=== PATIENT | male | born 1955 | race Caucasian/White ===

== ENCOUNTER 2016-08-13 18:07 | Inpatient (IN) ==
[2016-08-13] MEDS ORDERED: *HR* HYDROcodone/Acet 7.5/325 mg TABLET PO SCH (20:00)
[2016-08-14 05:53] LABS: INR 1.2; Prothrombin Time 12.7 Seconds (9.4-12.1)
[2016-08-14 05:56] LABS: Activated Partial Thrombo Time 30.7 Seconds (26.0-36.0)
[2016-08-14 05:59] LABS: Basophils % 0.3 %; Hemoglobin 8.1 g/dL (12.9-16.9); Immature Granulocytes % 0.5 % (0-4); Lymphocytes # 1.1 K/mcL (0.6-4.6); Lymphocytes % 14.2 %; Mean Corpuscular HGB Conc 33.8 g/dL (31.6-35.5); Mean Corpuscular Hemoglobin 29.6 pg (28.0-33.3); Mean Corpuscular Volume 87.6 fL (83.0-100.0); Mean Platelet Volume 10.9 fL (9.4-12.4); Monocytes # 0.8 K/mcL (0.0-1.3); Monocytes % 10.4 %; Neutrophils # 5.8 K/mcL (1.6-8.9); Platelet Count 152 K/mcL (140-400); Red Blood Count 2.74 M/mcL (4.19-5.50); Red Cell Distribution Width 13.2 % (11.5-14.5); Segmented Neutrophils % 74.6 %
[2016-08-14 06:02] LABS: BUN/Creatinine Ratio 21 (6-26); Blood Urea Nitrogen 15 mg/dL (8-26); Calcium 8.2 mg/dL (8.6-10.8); Carbon Dioxide 24 mEq/L (19-29); Chloride 105 mEq/L (98-109); Glucose 106 mg/dL (70-99); Osmolality,Calculated 287 (280-300); Sodium 138 mEq/L (136-145); eGFR For African Americans > 60 (> 60); eGFR For Non-African Americans > 60 (> 60)
[2016-08-14] MEDS: *HR* Enoxaparin 30 MG/0.3 ML SYRINGE SQ SCH ×2 (06:11→19:36)
[2016-08-14] MEDS: *HR* HYDROcodone/Acet 7.5/325 mg TABLET PO PRN ×2 (06:38→14:29)
--- NOTE | 2016-08-14 11:18 | Internal Med History&Physical ---
Date of Encounter: 08/14/16 Time of Encounter: 11:00 Assessment and Plan (1) Flexion contracture of right knee Current visit: No Status: Chronic previous injury. (2) History of total right knee replacement Current visit: Yes Status: Acute Patient is here for rehabilitation. Internal Medicine - H&P: HPI Chief complaint: Patient had a right total knee replacement for osteoarthritis Admitted From: Hospital to Hospital Transfer Plans for Post Hospital Care: Home History of present illness: Mr. Santiago is a 60 year old male Past Med Surg Social Fam HX - Past Medical History Medical history: peripheral artery disease Psychiatric history: no psych history, PTSD - Past Surgical History Surgical History: knee replacement - Social History Smoking Status: Current every day smoker Packs per day: 1 Smokeless Tobacco Status: No Alcohol use: none Drug use: none - Family History Brother Living Status: Still Living Hx Family Cardiac Disorders: Yes Hx Family Respiratory Disorders: No Hx Family Cancer: Yes Hx Family GI Disorders: No Hx Family Endocrine Disorder: No Hx Family Neuromuscular Disorders: No Hx Family Neurologic Disorders: No Hx Family HEENT Disorders: No Hx Family Autoimmune Disorders: No Internal Medicine - H&P: Meds Allergies No Known Allergies Allergy (Verified 08/10/16 14:31) All Systems PM: A 10-system review of systems was performed and is negative for pertinent findings except as documented above in the HPI. - Constitutional Vitals: Temp Pulse Resp BP Pulse Ox 98.1 F 80 16 164/71 96 08/14/16 07:00 08/14/16 07:00 08/14/16 07:00 08/14/16 07:00 08/14/16 10:43 General appearance: Present: answers questions appropriately - Head Head exam: Present: atraumatic, normal inspection, normocephalic - Neck Neck exam general surgery: Present: supple, trachea midline. Absent: lymphadenopathy - Respiratory Respiratory exam: Present: CTAB. Absent: accessory muscle use, rales, rhonchi, wheezes - Cardiovascular Cardiovascular exam: Present: RRR, +S1, +S2. Absent: diastolic murmur, gallop, rubs, systolic murmur - GI/Abdominal GI/Abdominal exam: Present: normal bowel sounds, soft, no peritoneal signs. Absent: distended, tenderness Internal Med - H&P Results - Labs CBC & Chem 7: 08/14/16 05:15 08/14/16 05:15 Labs: Lab appears stable Short CBC 08/14/16 Range/Units 05:15 WBC 7.8 (4.3-11.1) K/mcL Lab appears stable Hgb 8.1 L (12.9-16.9) g/dL Hct 24.0 L (37.5-50.1) % Plt Count 152 (140-400) K/mcL Neutrophils # 5.8 (1.6-8.9) K/mcL BMP 08/14/16 05:15 Sodium 138 Potassium 4.0 Chloride 105 Carbon Dioxide 24 BUN 15 Creatinine 0.72 Glucose 106 H Calcium 8.2 L
[2016-08-15] MEDS: *HR* Enoxaparin 30 MG/0.3 ML SYRINGE SQ SCH ×2 (05:25→18:56)
--- NOTE | 2016-08-15 13:12 | Internal Med Progress Note ---
Date of Encounter: 08/15/16 Time of Encounter: 12:00 - Assessment and plan (1) Flexion contracture of right knee Current Visit: No Status: Chronic Assessment and plan: This is why he has full leg cast on the right. (2) History of total right knee replacement Current Visit: Yes Status: Acute Assessment and plan: Same leg had the total knee replacement. - Time Spent With Patient less than 15 minutes - Subjective Interval history: No complaints toes are pink and patient for leg cast. - Constitutional Vitals: Temp Pulse Resp BP Pulse Ox 98.3 F 80 16 158/91 98 08/15/16 07:00 08/15/16 07:00 08/15/16 07:00 08/15/16 07:00 08/15/16 07:00 General appearance: Present: answers questions appropriately - Head Head exam: Present: atraumatic, normal inspection, normocephalic - Neck Neck exam general surgery: Present: supple, trachea midline. Absent: lymphadenopathy - Respiratory Respiratory exam: Present: CTAB. Absent: accessory muscle use, rales, rhonchi, wheezes - Cardiovascular Cardiovascular exam: Present: RRR, +S1, +S2. Absent: diastolic murmur, gallop, rubs, systolic murmur - GI/Abdominal GI/Abdominal exam: Present: normal bowel sounds, soft, no peritoneal signs. Absent: distended, tenderness Internal Medicine: Result - Labs CBC & Chem 7: 08/14/16 05:15 08/14/16 05:15 Labs: Labs stable - ABG Interpretation ABG results: PT/INR, D-dimer PT 12.7 Seconds (9.4-12.1) H 08/14/16 05:15 Consult Discharge Plan - Plan Referrals: NO,PCP [Primary Care Provider] -
[2016-08-16] MEDS: *HR* Enoxaparin 30 MG/0.3 ML SYRINGE SQ SCH ×2 (06:03→18:02)
[2016-08-16] MEDS: *HR* HYDROcodone/Acet 7.5/325 mg TABLET PO PRN ×2 (09:18→20:50)
--- NOTE | 2016-08-16 13:12 | Internal Med Progress Note ---
Date of Encounter: 08/16/16 Time of Encounter: 13:00 - Assessment and plan (1) Flexion contracture of right knee Current Visit: No Status: Chronic Assessment and plan: Straight leg cast is the treatment for the contracture. And currently it is applied (2) History of total right knee replacement Current Visit: Yes Status: Acute Assessment and plan: Knee was total replacement. - Time Spent With Patient less than 15 minutes - Subjective Interval history: Patient's only complaint is a bit of a raw area at the upper posterior portion of the cast. We will speak with orthopedics tomorrow and see if they want me to trim and I will see him. Early would put some extra cotton in air to take pressure off the area. - Constitutional Vitals: Temp Pulse Resp BP Pulse Ox 98.7 F 66 16 142/79 97 08/16/16 07:09 08/16/16 07:09 08/16/16 07:09 08/16/16 07:09 08/16/16 07:09 General appearance: Present: answers questions appropriately - Head Head exam: Present: atraumatic, normal inspection, normocephalic - Neck Neck exam general surgery: Present: supple, trachea midline. Absent: lymphadenopathy - Respiratory Respiratory exam: Present: CTAB. Absent: accessory muscle use, rales, rhonchi, wheezes - Cardiovascular Cardiovascular exam: Present: RRR, +S1, +S2. Absent: diastolic murmur, gallop, rubs, systolic murmur Internal Medicine: Result - Labs CBC & Chem 7: 08/14/16 05:15 08/14/16 05:15 Labs: Labs stable - ABG Interpretation ABG results: PT/INR, D-dimer PT 12.7 Seconds (9.4-12.1) H 08/14/16 05:15 Consult Discharge Plan - Plan Referrals: NO,PCP [Primary Care Provider] -
[2016-08-17 05:25] LABS: Basophils % 0.4 %; Hematocrit 25.7 % (37.5-50.1); Hemoglobin 8.5 g/dL (12.9-16.9); Immature Granulocytes % 0.1 % (0-4); Lymphocytes # 1.3 K/mcL (0.6-4.6); Lymphocytes % 18.4 %; Mean Corpuscular HGB Conc 33.1 g/dL (31.6-35.5); Mean Corpuscular Hemoglobin 29.9 pg (28.0-33.3); Mean Corpuscular Volume 90.5 fL (83.0-100.0); Mean Platelet Volume 9.4 fL (9.4-12.4); Monocytes # 0.7 K/mcL (0.0-1.3); Monocytes % 9.6 %; Neutrophils # 4.9 K/mcL (1.6-8.9); Platelet Count 261 K/mcL (140-400); Red Blood Count 2.84 M/mcL (4.19-5.50); Red Cell Distribution Width 13.4 % (11.5-14.5); Segmented Neutrophils % 71.5 %
[2016-08-17 05:31] LABS: BUN/Creatinine Ratio 26 (6-26); Blood Urea Nitrogen 19 mg/dL (8-26); Calcium 8.4 mg/dL (8.6-10.8); Carbon Dioxide 25 mEq/L (19-29); Chloride 106 mEq/L (98-109); Glucose 101 mg/dL (70-99); Osmolality,Calculated 290 (280-300); Potassium 4.3 mEq/L (3.5-4.5); Sodium 139 mEq/L (136-145); eGFR For African Americans > 60 (> 60); eGFR For Non-African Americans > 60 (> 60)
[2016-08-17] MEDS: *HR* Enoxaparin 30 MG/0.3 ML SYRINGE SQ SCH ×2 (05:44→21:45)
[2016-08-17] MEDS: *HR* HYDROcodone/Acet 7.5/325 mg TABLET PO PRN (05:45)
--- NOTE | 2016-08-17 13:17 | Internal Med Progress Note ---
Date of Encounter: 08/17/16 Time of Encounter: 13:00 - Assessment and plan (1) Flexion contracture of right knee Current Visit: No Status: Chronic Assessment and plan: Patient has a straight leg (2) History of total right knee replacement Current Visit: Yes Status: Acute Assessment and plan: Status post total knee replacement for previous injury - Time Spent With Patient less than 15 minutes - Subjective Interval history: Patient's only complaint is a bit of a raw area at the upper posterior portion of the cast. We will speak with orthopedics tomorrow and see if they want me to trim and I will see him. Early would put some extra cotton in air to take pressure off the area. - Constitutional Vitals: Temp Pulse Resp BP Pulse Ox 98.4 F 74 16 169/89 92 L 08/17/16 06:00 08/17/16 06:00 08/17/16 06:00 08/17/16 06:00 08/17/16 06:00 General appearance: Present: answers questions appropriately - Head Head exam: Present: atraumatic, normal inspection, normocephalic - Neck Neck exam general surgery: Present: supple, trachea midline. Absent: lymphadenopathy - Respiratory Respiratory exam: Present: CTAB. Absent: accessory muscle use, rales, rhonchi, wheezes - Cardiovascular Cardiovascular exam: Present: RRR, +S1, +S2. Absent: diastolic murmur, gallop, rubs, systolic murmur Internal Medicine: Result - Labs CBC & Chem 7: 08/17/16 05:10 08/17/16 05:10 Labs: Short CBC 08/17/16 Range/Units 05:10 WBC 6.9 (4.3-11.1) K/mcL Hgb 8.5 L (12.9-16.9) g/dL Hct 25.7 L (37.5-50.1) % Plt Count 261 D (140-400) K/mcL Neutrophils # 4.9 (1.6-8.9) K/mcL BMP 08/17/16 05:10 Sodium 139 Potassium 4.3 Chloride 106 Carbon Dioxide 25 BUN 19 Creatinine 0.72 Glucose 101 H Calcium 8.4 L Lab is stable - ABG Interpretation ABG results: PT/INR, D-dimer PT 12.7 Seconds (9.4-12.1) H 08/14/16 05:15 Consult Discharge Plan - Plan Referrals: NO,PCP [Primary Care Provider] -
[2016-08-18] MEDS: *HR* Enoxaparin 30 MG/0.3 ML SYRINGE SQ SCH ×2 (06:05→20:05)
[2016-08-18] MEDS: *HR* HYDROcodone/Acet 7.5/325 mg TABLET PO PRN (06:05)
--- NOTE | 2016-08-18 13:26 | Internal Med Progress Note ---
Date of Encounter: 08/18/16 Time of Encounter: 13:00 - Assessment and plan (1) Flexion contracture of right knee Current Visit: Yes Status: Chronic Assessment and plan: Patient has straight leg (2) History of total right knee replacement Current Visit: Yes Status: Acute Assessment and plan: Had a total knee replacement. Has a follow-up with the orthopedic surgeon. - Time Spent With Patient less than 15 minutes - Subjective Interval history: Patient has no complaints and is ambulating in the [place] with a walker and standby with physical therapy - Constitutional Vitals: Temp Pulse Resp BP Pulse Ox 98.7 F 59 16 120/67 92 L 08/18/16 09:12 08/18/16 09:12 08/18/16 09:12 08/18/16 09:12 08/18/16 09:12 General appearance: Present: answers questions appropriately - Head Head exam: Present: atraumatic, normal inspection, normocephalic - Neck Neck exam general surgery: Present: supple, trachea midline. Absent: lymphadenopathy - Respiratory Respiratory exam: Present: CTAB. Absent: accessory muscle use, rales, rhonchi, wheezes - Cardiovascular Cardiovascular exam: Present: RRR, +S1, +S2. Absent: diastolic murmur, gallop, rubs, systolic murmur Internal Medicine: Result - Labs CBC & Chem 7: 08/17/16 05:10 08/17/16 05:10 Labs: Lab is stable - ABG Interpretation ABG results: PT/INR, D-dimer PT 12.7 Seconds (9.4-12.1) H 08/14/16 05:15 Consult Discharge Plan - Plan Referrals: NO,PCP [Primary Care Provider] -
[2016-08-19] MEDS: *HR* Enoxaparin 30 MG/0.3 ML SYRINGE SQ SCH (05:17)
[2016-08-19 07:25] VITALS: BP 172/79
[2016-08-19] MEDS: *HR* HYDROcodone/Acet 7.5/325 mg TABLET PO PRN (07:55)
--- NOTE | 2016-08-19 13:15 | Discharge Summary ---
Date of Encounter: 08/19/16 Time of Encounter: 13:00 - Discharge Diagnosis (1) Flexion contracture of right knee Priority: Primary Status: Chronic Comments: Patient had a 30% flexion contracture of his right leg one day postop. He was brought back to surgery and the leg was extended in a long leg cast was applied (2) History of total right knee replacement Priority: Primary Status: Acute Comments: She had a total knee replacement for previous old injuries. - Discharge Medications Allergies/Adverse Reactions: Allergies No Known Allergies Allergy (Verified 08/10/16 14:31) Date of admission: 08/13/16 18:13 Primary care physician: PCP NO Consults: 08/13/16 18:37 Consult to Occupational Therapy [CONS] Routine Comment: Evaluate, develop and implement POC Consult to Physical Therapy [CONS] Routine Comment: Evaluate, develop and implement POC Consult to Recreational Therapy [CONS] Routine Comment: Evaluate, develop and implement POC Consult to Cheerleading Coach [CONS] Routine Reason for SW Consult: discharge planning Discharging clinician: Spencer Baer Anticipated date of discharge: 08/19/16 - Patient Status Disposition: Home, Self-Care Condition: Good Functional capacity at discharge: uses cane/walker Overall status at discharge: patient is progressing back to baseline - Discharge Instructions Instructions: Deep Venous Thrombosis (DC), Joint Replacement Surgery (DC) Follow Up With: Atif Koroma MD [Partnered Physician] - 09/08/16 8:05 am Leatha Hernandez PAC [Physician Fur Finisher Tailor] - 08/20/16 10:30 am (also, 08/27/16/ at 0800) NO,PCP [Primary Care Provider] - (physician referral line [phone]) Additional Instructions: Follow-up appointments: If there is not an appointment listed below, please call your physician and schedule a follow-up appointment. If you have congestive heart failure and your symptoms return, make an appointment with your physician. Medication List: Carry an up to date list of medications you are taking at all time. We have given you an updated medication list including any new medications that you have been prescribed. Please provide that list to your primary provider Symptoms: If your condition changes or you experience any of the following symptoms, notify your physician immediately: Unusual or worsening pain, fever, persistent nausea and vomiting, bleeding, increase in swelling (especially in your legs), sudden weight gain, extreme dizziness, chest pain, increased drainage or redness from a wound or incision. Go to the emergency department if you experience a problem with breathing. Weights: If you have a history of swelling or shortness of breath, weigh yourself daily and notify your physician if you have a weight gain of two or more pounds in one day or 5 or more pounds in a week. If you experience any of the warning signs for stroke: Sudden numbness or weakness of the face, arm or leg; especially on one side of the body, sudden confusion, trouble speaking or understanding, sudden trouble seeing in one or both eyes, sudden trouble walking, dizziness, loss of balance or coordination, sudden sever headache with no cause; Call 911 or go to the emergency room. Stroke is a medical emergency. Some risk factors for stroke: Age, cigarette smoking, diabetes, excessive alcohol consumption, family history , high blood pressure, overweight, physical inactivity, prior stroke, heart attack, diagnosis of carotid artery stenosis or other artery disease. If you smoke, STOP: Smoking or tobacco use significantly increases your risk of heart and lung disease. Your chance of disease greatly increases if you continue to smoke. For more information, call the [place] [employer] quit line for smoking cessation QUIT-NOW ( ) - Diet and Activity Activity: ambulate only with your walker Diet: advance to your usual diet Interval History: Mr. SANTIAGO was brought in to [facility] rehabilitation after flexion contracture was treated with a long-leg cast status post total knee replacement Hospital course: Mr. Santiago is a 60 year old male is able to ambulate the length of the halls with his walker and is doing well. He will be discharged today and has a follow-up appointment tomorrow with orthopedic surgeon. I spoke with the PA with the orthopedic surgeon who is well aware that he has had a role area in the posterior upper portion of that test area on the thigh and also they are going to probably remove it to check the incision - Time Spent with Patient Total time spent providing and/or coordinating discharge services: Less than 30 minutes - Constitutional Vitals: Temp Pulse Resp BP Pulse Ox 98.2 F 70 18 172/79 97 08/19/16 07:22 08/19/16 07:22 08/19/16 07:22 08/19/16 07:22 08/19/16 07:22 General appearance: Present: answers questions appropriately - Head Head exam: Present: atraumatic, normal inspection, normocephalic - Neck Neck exam general surgery: Present: supple, trachea midline. Absent: lymphadenopathy - Respiratory Respiratory exam: Present: CTAB. Absent: accessory muscle use, rales, rhonchi, wheezes - Cardiovascular Cardiovascular exam: Present: RRR, +S1, +S2. Absent: diastolic murmur, gallop, rubs, systolic murmur
== END 2016-08-19 14:30 | disposition home or self-care (01) | DRG 561 ==
LOC: INPGRE 18:13
PROVIDERS: ADMIT Internal Medicine; ATTEND Internal Medicine